=== PATIENT | male | born 1980 | race Hispanic/Latino ===

== ENCOUNTER 2019-08-10 07:28 | Outpatient (CLI) | payer BC ==
--- NOTE | 2019-08-10 10:01 | ULT ---
HEPATIC ULTRASOUND WITH DOPPLER: Date: 08/10/19 HISTORY: Elevated LFTs. FINDINGS: The liver demonstrates increased echogenicity consistent with fatty infiltration. No focal mass or in trahepatic ductal dilatation is seen. No gallstones, gallbladder wall thickening, or pericholecystic fluid is seen. The spleen is normal, measuring 10.8 cm in length. The visualized portions of the panc reas are unremarkable. No free fluid is seen. There is normal flow and spectral waveforms in the hepatic, portal, and splenic vasculature. IMPRESSION: 1. Fatty liver. 2. No evidence of cholelithiasis. POS: OFF
== END 2019-08-10 07:29 | disposition home or self-care (01) ==
LOC: ULT 07:28 → BICULT 07:29
PROVIDERS: ATTEND Internal Medicine
DX: R94.5 Abnormal results of liver function studies (principal); K76.0 Fatty (change of) liver, not elsewhere classified
CPT/HCPCS: 76705